=== PATIENT | male | born 1990 | race Caucasian/White ===

== ENCOUNTER 2019-08-23 08:38 | Inpatient (IN) | payer OTHER ==
[~2019-08-23] VITALS: Ht 162.6 cm; Wt 70.8 kg
[2019-08-23 08:44] VITALS: Ht 162.6 cm; Wt 70.8 kg
[2019-08-23 09:45] LABS: microscopic required? NO
[2019-08-23 09:55] LABS: BASOPHIL % 0.1 % (0-2); PLATELET COUNT 218 x10^3mcL (130-400); RED CELL DISTRIBUTION WIDTH 12.3 % (11.5-14.5)
[2019-08-23 10:08] LABS: CARBON DIOXIDE 29.9 mmol/L (21-32); CHLORIDE SERUM 101 mmol/L (98-107); GFR1 > 60 mL/min; GLUCOSE SERUM 102 mg/dL (74-106); POTASSIUM SERUM 3.9 mmol/L (3.5-5.1); SODIUM SERUM 135 mmol/L (136-145)
[2019-08-23 10:13] LABS: ALKALINE PHOSPHATASE 56 U/L (46-116); ALT/SGPT 12 U/L (16-63); AST/SGOT 14 U/L (15-37); BILIRUBIN TOTAL 1.1 mg/dL (0.20-1.00); LIPASE 32 IU/L (73-393); TOTAL PROTEIN, SERUM 7.1 g/dL (6.4-8.2)
[2019-08-23 10:24] LABS: UA SPECIFIC GRAVITY 1.015 (1.005-1.035); urine erythrocyte NEGATIVE (NEGATIVE)
[2019-08-23 10:32] LABS: ALBUMIN 3.3 g/dL (3.4-5.0)
[2019-08-23 12:56] LABS: CHOLESTEROL/HDL RATIO 2.9
[2019-08-23 12:59] LABS: T3 TOTAL 0.76 ng/mL
[2019-08-23 13:27] LABS: FREE T4 0.84 ng/dL (0.76-1.46); FREE THYROXINE INDEX 1.9 ug/dL (1.4-4.5); T4(THYROXINE) 5.6 ug/dL (4.7-13.3)
[2019-08-23 14:19] VITALS: BP 125/77
[2019-08-23 15:52] VITALS: BP 125/81
[2019-08-23 18:00] VITALS: BP 134/83
[2019-08-24 04:56] VITALS: BP 124/84
[2019-08-24 06:16] LABS: BASOPHIL % 0.1 % (0-2); PLATELET COUNT 210 x10^3mcL (130-400); RED CELL DISTRIBUTION WIDTH 12.5 % (11.5-14.5)
[2019-08-24 06:36] LABS: CALCIUM 8.5 mg/dL (8.5-10.1); CHLORIDE SERUM 104 mmol/L (98-107); CREATININE SERUM 0.9 mg/dL (0.7-1.3); GFR1 > 60 mL/min; GLUCOSE SERUM 117 mg/dL (74-106); MAGNESIUM 1.9 mg/dL (1.8-2.4); POTASSIUM SERUM 4.9 mmol/L (3.5-5.1); SODIUM SERUM 139 mmol/L (136-145)
[2019-08-24 07:58] VITALS: BP 119/88
[2019-08-24 12:02] VITALS: BP 115/74
[2019-08-24 16:17] VITALS: BP 111/72
[2019-08-24 19:39] VITALS: BP 122/72
[2019-08-25 04:23] VITALS: BP 124/86
[2019-08-25 06:53] LABS: BASOPHIL % 0.5 % (0-2); PLATELET COUNT 196 x10^3mcL (130-400); RED CELL DISTRIBUTION WIDTH 12.6 % (11.5-14.5)
[2019-08-25 06:54] LABS: CALCIUM 8.1 mg/dL (8.5-10.1); CARBON DIOXIDE 28.3 mmol/L (21-32); CHLORIDE SERUM 106 mmol/L (98-107); GFR1 > 60 mL/min; GLUCOSE SERUM 100 mg/dL (74-106); SODIUM SERUM 141 mmol/L (136-145)
[2019-08-25 07:13] VITALS: BP 113/80
[2019-08-25 14:03] VITALS: BP 113/80
== END 2019-08-25 16:00 | disposition home or self-care (01) | DRG 263 ==
LOC: ED 08:38 → MU 12:11 → DU 12:11 → MU 20:36
PROVIDERS: Emergency Medicine; Surgery; ADMIT General Practice
PROC: 0FT44ZZ Resection of Gallbladder, Percutaneous Endoscopic Approach (ICD-10-PCS; principal; 2019-08-23 18:00)
DX: K80.00 Calculus of gallbladder with acute cholecystitis without obstruction (principal); K82.1 Hydrops of gallbladder; K82.A1 Gangrene of gallbladder in cholecystitis; E44.1 Mild protein-calorie malnutrition
CPT/HCPCS: 84439; G0378; J1885; J2175; J2250; J2270; J2405; J2543; J3010; J3490; J7030